=== PATIENT | female | born 1995 | race Caucasian/White ===

== ENCOUNTER 2019-09-26 22:39 | Emergency (ER) | payer OTHER, MEDICAID ==
[~2019-09-26] VITALS: Ht 170.2 cm; Wt 79.4 kg
[2019-09-26 22:51] VITALS: Ht 170.2 cm; Wt 79.4 kg
[2019-09-27 01:46] VITALS: BP 105/74
== END 2019-09-27 01:46 | disposition home or self-care (01) ==
LOC: ED 22:39
DX: S20.219A Contusion of unspecified front wall of thorax, initial encounter (principal); V49.49XA Driver injured in collision with other motor vehicles in traffic accident, initial encounter; Y93.I9 Activity, other involving external motion; Y92.413 State road as the place of occurrence of the external cause; Y99.8 Other external cause status
CPT/HCPCS: Q0092